=== PATIENT | female | born 1950 | race African-American/Black ===

== ENCOUNTER 2025-04-05 07:55 | Inpatient (IN) | payer MEDICARE, OTHER ==
[~2025-04-05] VITALS: Ht 162.6 cm; Wt 93.0 kg
[2025-04-05] VITALS (14 sets, daily range): BP systolic 111–164; BP diastolic 41–61; PULSE 38–72; RESP 16–20; TEMP 36.5–37.1; O2SAT 97–100
[~2025-04-05 07:55] MED LIST: ALLO100T PO; AMLO10TA80 PO; ATEN50TA PO; ATOR40TA70 PO; HYDR50TA39 PO
[2025-04-05] MEDS: ONDANSETRON HCL 4MG/2ML INJ IV STA (08:27)
[2025-04-05 08:54] LABS: HEMOGLOBIN. 10.4 g/dL (12.0-16.0); MEAN CORPUSCULAR HEMOGLOBIN 32.5 pg (28.0-32.0); MEAN CORPUSCULAR HGB CONC 32.5 g/dL (31.0-37.0); MEAN CORPUSCULAR VOLUME 99.9 fL (81.0-99.0); MEAN PLATELET VOLUME 10.1 fl (7.4-10.4); PLATELET 166 x1000/uL (130-400); RED CELL DISTRIBUTION WIDTH 16.6 % (11.6-14.6); WHITE BLOOD COUNT 10.2 x1000/uL (4.5-11.0)
[2025-04-05 09:00] LABS: DIFFERENTIAL COMMENT 1
[2025-04-05 09:02] LABS: CHLORIDE 99 mEq/L (98-107); SODIUM 139 mEq/L (136-145)
[2025-04-05 09:03] LABS: CALCIUM 7.9 mg/dL (8.7-10.4); CARBON DIOXIDE 25 mEq/L (21-32)
[2025-04-05 09:08] LABS: GLUCOSE 165 mg/dL (70-105); UREA NITROGEN BLOOD 69 mg/dL (9-23)
[2025-04-05 09:09] LABS: TROPONIN I HIGH SENSITIVITY 7 ng/L (3.0-34)
[2025-04-05 09:10] LABS: ALANINE AMINOTRANSFERASE 30 IU/L (10-49); ALBUMIN 4.2 g/dL (3.2-4.8); ASPARTATE AMINOTRANSFERASE 31 IU/L (<34); BILIRUBIN DIRECT < 0.1 mg/dL (<=3.0); BILIRUBIN TOTAL 0.2 mg/dL (0.1-1.0)
[2025-04-05 09:15] LABS: PROTHROMBIN TIME 10.3 sec (9.6-11.0)
[2025-04-05 09:30] LABS: POTASSIUM 6.4 mEq/L (3.5-5.1)
[2025-04-05 09:31] LABS: CREATININE 10.2 mg/dL (0.6-1.0)
[2025-04-05] MEDS: ALBUTEROL (0.083%) 2.5MG/3ML NEB HHN ONE (09:53)
[2025-04-05] MEDS: DEXTROSE 50% WATER 50ML SYRINGE IV ONE (09:54)
[2025-04-05] MEDS: INSULIN REGULAR (HUMULIN R) 1000UNITS/10ML VIAL IV ONE (09:54)
[2025-04-05] MEDS: FUROSEMIDE 40MG/4ML VIAL IVP ONE (09:54)
[2025-04-05] MEDS: CALCIUM GLUCONATE 100MG/ML 10ML VIAL IV ONE (09:54)
[2025-04-05] MEDS ORDERED: ATROPINE SULFATE 0.1MG/ML 10ML DISP.SYRIN IV ONE (10:00)
[2025-04-05] MEDS: ATROPINE SULFATE 1MG/10ML SYR IV NR (10:02)
[2025-04-05 10:13] LABS: ANISOCYTOSIS 1+; PLATELET ESTIMATE NORMAL
[2025-04-05 11:12] LABS: TROPONIN I HIGH SENSITIVITY 8 ng/L (3.0-34)
[2025-04-05 13:25] LABS: HEPATITIS B SURFACE ANTIGEN NEGATIVE (Negative)
[2025-04-05 13:46] LABS: HEPATITIS A AB IGM NEGATIVE (Negative)
[2025-04-05 13:47] LABS: HEPATITIS B CORE AB IGM NEGATIVE (Negative); HEPATITIS C AB NON REACTIVE (Neg) (Negative)
[2025-04-05] MEDS ORDERED: CLONIDINE 0.1MG TABLET PO PRN (14:15)
[2025-04-05] MEDS ORDERED: ACETAMINOPHEN 325MG TABLET PO PRN ×2 (14:15)
[2025-04-05] MEDS ORDERED: MAGNESIUM/ALUMINUM HYDROXIDE/SIMETHICONE 30ML UDC PO PRN (14:15)
[2025-04-05] MEDS ORDERED: GUAIFENESIN 200MG/10ML SUGAR FREE UDC PO PRN (14:15)
[2025-04-05] MEDS ORDERED: DOCUSATE SODIUM 100MG CAPSULE PO PRN (14:15)
[2025-04-05] MEDS ORDERED: IPRATROPIUM/ALBUTEROL 0.5-3(2.5)MG/3ML NEB HHN PRN (14:15)
[2025-04-05] MEDS ORDERED: DEXTROSE 50% WATER 50ML SYRINGE IV PRN (14:15)
[2025-04-05] MEDS ORDERED: ONDANSETRON HCL 4MG/2ML INJ IV PRN (14:15)
[2025-04-05] MEDS ORDERED: CEFTRIAXONE 1GM/50ML 50 ML IV SCH (16:00)
[2025-04-05] MEDS: BLOOD SUGAR DIAGNOSTIC STRIP TEST SCH (17:10)
[2025-04-05] MEDS: INSULIN LISPRO 100 UNITS/ML SUBCUT SCH (17:40)
[2025-04-05] MEDS ORDERED: ATROPINE SULFATE 1MG/10ML SYR IV PRN (18:45)
[2025-04-05] MEDS: AZITHROMYCIN 500MG/250ML 250 ML IV SCH (19:59)
[2025-04-05] MEDS: ATORVASTATIN CALCIUM 40MG TABLET PO SCH (21:02)
[2025-04-05] MEDS: PANTOPRAZOLE SODIUM 40 MG/VIAL IV SCH (21:02)
[2025-04-05] MEDS: ENOXAPARIN 30MG/0.3ML SYR SUBCUT SCH (21:03)
[2025-04-05] MEDS: HYDRALAZINE HCL 50MG TABLET PO SCH (21:39)
[2025-04-05] MEDS: CEFTRIAXONE 1GM/50ML 50 ML IV SCH (21:39)
[2025-04-05] MEDS: INSULIN GLARGINE 100 UNITS/ML SUBCUT SCH (21:40)
[2025-04-05 21:54] LABS: POTASSIUM 3.8 mEq/L (3.5-5.1)
[2025-04-06] VITALS (8 sets, daily range): BP systolic 101–147; BP diastolic 35–71; PULSE 57–66; RESP 18–22; TEMP 35.9–37.4; O2SAT 93–99
[2025-04-06 06:23] LABS: HEMATOCRIT. 29.2 % (36.0-48.0); HEMOGLOBIN. 9.7 g/dL (12.0-16.0); MEAN CORPUSCULAR HEMOGLOBIN 32.7 pg (28.0-32.0); MEAN CORPUSCULAR HGB CONC 33.1 g/dL (31.0-37.0); MEAN CORPUSCULAR VOLUME 98.9 fL (81.0-99.0); MEAN PLATELET VOLUME 10.6 fl (7.4-10.4); PLATELET 127 x1000/uL (130-400); RED BLOOD CELL COUNT 2.95 mill/uL (4.2-5.4); RED CELL DISTRIBUTION WIDTH 16.4 % (11.6-14.6); WHITE BLOOD COUNT 9.4 x1000/uL (4.5-11.0)
[2025-04-06 06:36] LABS: POTASSIUM 4.6 mEq/L (3.5-5.1)
[2025-04-06 06:37] LABS: CALCIUM 8.1 mg/dL (8.7-10.4)
[2025-04-06 06:40] LABS: DIFFERENTIAL COMMENT 1
[2025-04-06] MEDS: AMLODIPINE 10MG TABLET PO SCH (09:00)
[2025-04-06] MEDS: ALLOPURINOL 100 MG TABLET PO SCH (09:10)
[2025-04-06 09:18] LABS: ANISOCYTOSIS 1+; PLATELET ESTIMATE NORMAL
[2025-04-06] MEDS: EPOETIN ALFA-EPBX 4,000 UNIT/ML VIAL SUBCUT SCH (20:47)
== END 2025-04-06 22:52 | disposition short-term general hospital (02) | DRG 391 ==
LOC: ER 07:55 → EDBEDREQTM 12:14 → EDBEDREQ 12:14 → EDBEDREQSVC 12:15 → ENRESERV 12:22 → 8WST 12:28
PROVIDERS: ADMIT Hospitalist; ATTEND Hospitalist
PROC: 5A1D70Z Performance of Urinary Filtration, Intermittent, Less than 6 Hours Per Day (ICD-10-PCS; principal; 2025-04-05)
DX: A08.4 Viral intestinal infection, unspecified (principal); J18.9 Pneumonia, unspecified organism; J96.01 Acute respiratory failure with hypoxia; N18.6 End stage renal disease; I12.0 Hypertensive chronic kidney disease with stage 5 chronic kidney disease or end stage renal disease; E87.70 Fluid overload, unspecified; K57.30 Diverticulosis of large intestine without perforation or abscess without bleeding; R00.1 Bradycardia, unspecified; E87.5 Hyperkalemia; K21.9 Gastro-esophageal reflux disease without esophagitis; D64.9 Anemia, unspecified; T50.995A Adverse effect of other drugs, medicaments and biological substances, initial encounter; E11.22 Type 2 diabetes mellitus with diabetic chronic kidney disease; M10.9 Gout, unspecified; E11.65 Type 2 diabetes mellitus with hyperglycemia; E83.51 Hypocalcemia; N28.1 Cyst of kidney, acquired; Z91.158 Patient's noncompliance with renal dialysis for other reason; Z79.899 Other long term (current) drug therapy; Z85.3 Personal history of malignant neoplasm of breast; Z90.49 Acquired absence of other specified parts of digestive tract; Z99.2 Dependence on renal dialysis; Z88.8 Allergy status to other drugs, medicaments and biological substances; Y92.89 Other specified places as the place of occurrence of the external cause
CPT/HCPCS: 36415; 71045; 74176; 80048; 80076; 82962; 83036; 84132; 84484; 85025; 86705; 86709; 87340; 90935; 93005; 94070; 94640; 94664; 96374; 96375; 98960; 99291; A4606; J0456; J0461; J0610; J0696; J0885; J1650; J1815; J1940; J2405; J2470

== ENCOUNTER 2025-08-17 16:32 | Emergency (ER) | payer MEDICARE, OTHER ==
[~2025-08-17] VITALS: Ht 162.6 cm; Wt 84.5 kg
[~2025-08-17 16:32] MED LIST changes: -ATEN50TA PO; +CALC667C PO; +METO-539 PO
[2025-08-17 16:38] VITALS: TEMP 36.9; O2SAT 100
[2025-08-17 17:08] VITALS: BP 160/70; PULSE 100; RESP 18; O2SAT 98
== END 2025-08-17 17:41 | disposition left against medical advice (07) ==
LOC: ER 16:32
DX: R06.02 Shortness of breath (principal); E11.9 Type 2 diabetes mellitus without complications; E78.00 Pure hypercholesterolemia, unspecified; I10 Essential (primary) hypertension; Z79.899 Other long term (current) drug therapy; Z95.0 Presence of cardiac pacemaker
CPT/HCPCS: 93005; 99283